=== PATIENT | female | born 1960 | race Hispanic/Latino ===

== ENCOUNTER 2017-07-31 11:02 | Emergency (ER) | payer OTHER ==
[2017-07-31 11:09] VITALS: TEMP 98; O2SAT 100
[2017-07-31 11:17] VITALS: BMI 28.1
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
[2017-07-31 15:10] VITALS: BP 142/72; PULSE 80; RESP 16
== END 2017-07-31 15:08 | disposition home or self-care (01) ==
LOC: ED 11:02
DX: S16.1XXA Strain of muscle, fascia and tendon at neck level, initial encounter (principal); V49.49XA Driver injured in collision with other motor vehicles in traffic accident, initial encounter; Y93.9 Activity, unspecified; Y92.410 Unspecified street and highway as the place of occurrence of the external cause